=== PATIENT | male | born 1965 | race Caucasian/White ===

== ENCOUNTER 2017-09-14 18:09 | Emergency (ER) | payer OTHER ==
[2017-09-14 18:19] VITALS: BP 147/94; PULSE 66; TEMP 98.2; BMI 24.3
--- NOTE | 2017-09-14 18:20 | PDOC ---
Rapid Medical Evaluation Time Seen by Provider: 09/14/17 18:17 Medical Evaluation: Allergies Allergy/AdvReac Type Severity Reaction Status Date / Time No Known Allergies Allergy Verified 02/08/15 21:55 09/14/17 18:17 I have performed a brief in-person evaluation of this patient. The patient presents with a chief complaint of: Intermittent CP x 6 days. Drove to [place] 7 days ago (6hrs). No palpitations, sob, diaphoresis, leg pain/ swelling. Denies pmhx. No illicit drug use Pertinent physical exam findings:Stable w/ clear chest/lungs, no Le edema I have ordered the following:ekg/cxr/labs The patient will proceed to the ED for further evaluation.
[2017-09-14 18:42] LABS: BASO % 1.3 % (0-2.0); EOS % 4.7 % (0-4.5); HEMOGLOBIN 14.1 GM/dL (11.7-16.9); LYMPH % 25.4 % (8-40); MCH 28.8 pg (25.7-33.7); MCHC 33.5 g/dl (32.0-35.9); MEAN PLT VOLUME 7.1 fl (7.5-11.1); MONO % 9.2 % (3.8-10.2); NEUT % 59.4 % (42.8-82.8); PLATELET COUNT 267 K/MM3 (134-434); RBC 4.88 M/mm3 (4.00-5.60); RDW 13.2 % (11.9-15.9)
[2017-09-14 19:06] LABS: URINE APPEARANCE CLEAR; URINE BILIRUBIN NEGATIVE (NEGATIVE); URINE BLOOD NEGATIVE (NEGATIVE); URINE COLOR LTYELLOW; URINE GLUCOSE (UA) NEGATIVE (NEGATIVE); URINE KETONE NEGATIVE (NEGATIVE); URINE LEUK ESTERASE NEGATIVE (NEGATIVE); URINE NITRITE NEGATIVE (NEGATIVE); URINE PROTEIN NEGATIVE (NEGATIVE); URINE UROBILINOGEN NEGATIVE mg/dL (0.2-1.0)
[2017-09-14 19:17] LABS: ALBUMIN 3.9 g/dl (3.4-5.0); ANION GAP 7 (8-16); BILIRUBIN,TOTAL 0.3 mg/dL (0.2-1.0); BLOOD UREA NITROGEN 20 mg/dL (7-18); CALCIUM 8.4 mg/dL (8.5-10.1); CHLORIDE 106 mmol/L (98-107); CO2 27 mmol/L (21-32); CREATININE 0.8 mg/dL (0.7-1.3); GLUCOSE,RANDOM 84 mg/dL (74-106); POTASSIUM 3.8 mmol/L (3.5-5.1); SGOT/AST 28 U/L (15-37); SGPT/ALT 50 U/L (12-78); SODIUM 140 mmol/L (136-145); TOT PROT 6.6 g/dl (6.4-8.2)
[2017-09-14 19:19] LABS: ALK PHOS 112 U/L (45-117)
--- NOTE | 2017-09-15 16:08 | EKG ---
Test Reason : Blood Pressure : / mmHG Vent. Rate : 060 BPM Atrial Rate : 060 BPM P-R Int : 152 ms QRS Dur : 088 ms QT Int : 410 ms P-R-T Axes : 040 016 030 degrees QTc Int : 410 ms NORMAL SINUS RHYTHM NORMAL ECG WHEN COMPARED WITH ECG OF 02-MAR-2013 19:49, NO SIGNIFICANT CHANGE WAS FOUND Confirmed by ROBEL MCNULTY MD ([id number]) on 09/15/2017 4:08:22 PM Referred By: Confirmed By:ROBEL MCNULTY MD
== END 2017-09-14 22:34 | disposition left against medical advice (07) ==
LOC: JER 18:09
DX: R07.89 Other chest pain (principal)
CPT/HCPCS: 36415; 80053; 81003; 82550; 82553; 84484; 85025; 93005; 93010; 99281-25